=== PATIENT | female | born 1950 | race Caucasian/White ===

== ENCOUNTER 2016-11-07 04:58 | Day surgery (SDC) | payer MEDICARE ==
[~2016-11-07] VITALS: Ht 172.7 cm; Wt 101.4 kg
[~2016-11-07 04:58] MED LIST: ASPIR-LOW81 M1 PO; ASPIR-TRIN325 M1 PO; CALCIUM600 MG PO; CITALOPRAM HBR40 M1 PO; FLONASE ALLERG9.9 ML; FOLIC ACID1 MG PO; HYDROXYCHLOROQ200 MG PO; LISINOPRIL-HCT1 EAC3 PO; MILLTRIUM SENI1 EACH PO; NASACORT10.8 M1; NORCO 5/3251 TA1 PO; PROTONIX40 MG PO; SYNTHROID137 MC1 PO; TOPROL XL25 M1 PO; TRICOR145 M2 PO; ZOFRAN4 MG PO
[2016-11-08] MEDS ORDERED: NORCO 5-325 TA1 EACH PO (11:16)
== END 2016-11-08 14:20 ==
LOC: SRG 04:58 → SHSC 04:58 → SRG 05:00 → ORW 10:39 → PACU 14:20 → 5WE 16:00 → SRG 11-08 14:20
PROC: 0HUT0JZ Supplement Right Breast with Synthetic Substitute, Open Approach (ICD-10-PCS; principal; 2016-11-07)
PROC: 0HTV0ZZ Resection of Bilateral Breast, Open Approach (ICD-10-PCS; 2016-11-07)
PROC: 07B50ZX Excision of Right Axillary Lymphatic, Open Approach, Diagnostic (ICD-10-PCS; 2016-11-07)
DX: C50.412 Malignant neoplasm of upper-outer quadrant of left female breast (principal); C50.911 Malignant neoplasm of unspecified site of right female breast; Z17.0 Estrogen receptor positive status [ER+]; G47.33 Obstructive sleep apnea (adult) (pediatric); I12.9 Hypertensive chronic kidney disease with stage 1 through stage 4 chronic kidney disease, or unspecified chronic kidney disease; N18.3 Chronic kidney disease, stage 3 (moderate); M06.9 Rheumatoid arthritis, unspecified; E03.9 Hypothyroidism, unspecified; F41.9 Anxiety disorder, unspecified; F32.9 Major depressive disorder, single episode, unspecified; K21.9 Gastro-esophageal reflux disease without esophagitis; E78.5 Hyperlipidemia, unspecified; E55.9 Vitamin D deficiency, unspecified; Z79.82 Long term (current) use of aspirin; Z79.899 Other long term (current) drug therapy; Z88.0 Allergy status to penicillin; Z91.013 Allergy to seafood; Z87.891 Personal history of nicotine dependence; Z80.3 Family history of malignant neoplasm of breast
CPT/HCPCS: A9520; C1713; C1781; C1789; J1170; J2250; J2270; J2795; J3010; J3370